=== PATIENT | female | born 1995 | race Caucasian/White ===

== ENCOUNTER → 2018-10-14 16:45 | Outpatient (CLI) | payer BC, SELFPAY ==
[2018-10-19 15:02] LABS: HPV Reflexed? NOT INDICATED
--- OUTSIDE RECORDS SUMMARY | 2018-12-01 02:04 | XMS RPT_ITS | Summary of Care ---
:1995 Author Organization [facility] Address [address] [id number] Care Team Providers Name Role Phone No, Physician Primary Care Provider Unavailable Reason for Visit Reason Comments Follow-up Encounter Details Date Type Department Care Team Description 04/13/2018 Office Visit [facility] Orthopedic Girma Colvin Bursitis/tendonitis, shoulder (Primary Dx); & Sports Medicine MD [place] Shoulder instability, right; Physicians [address] Right shoulder pain, unspecified chronicity [address] [place] [address] [place] [address] [phone] Allergies No Known Allergiesas of this encounter Medications Prescription Sig. Disp. Refills Start Date End Date Status PREVIFEM 0.25-35 mg-mcg per tablet 02/13/2018 Active as of this encounter Social History Tobacco Use Types Packs/Day Years Used Date Never Smoker Smokeless Tobacco: Never Used Alcohol Use Drinks/Week oz/Week Comments No Sex Assigned at Date Recorded Not on file as of this encounter Progress Notes Girma Colvin MD - 04/13/2018 11:55 AM EDT She comes today for followup of her right shoulder physical therapy. She declined a shot the last time but the therapy has helped quite a bit. She is about 25%-30% better and getting better every day. She said she thinks she can finish out her senior year. She does not want any surgery. PHYSICAL EXAMINATION General: Today, she is awake, alert, oriented x3. Musculoskeletal: She has 5/5 strength throughout the right upper extremity, including the rotator cuff. Today she has some tenderness to the anterior acromial hook and bicipital groove, faintly positive anterior apprehension and relocation sign. IMPRESSION 1.Right shoulder anterior inferior instability. 2.Right shoulder internal impingement with rotator cuff tendinitis. 3.Possible SLAP lesion right shoulder. 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 I will have her minimize her repetitions in fall softball when she returns in June. She will get ready for the spring season. If in fact, she needs a shot she will call me. I will see her on an as-needed basis. in this encounter Plan of Treatment Health Maintenance Due Date Last Done Comments TETANUS EVERY 10 YR 1997 HPV VACCINES (1 of 3 - Female 3 Dose Series) 2008 SEQUENTIAL INFLUENZA VACCINE (Season Ended) 2018 as of this encounter Visit Diagnoses Diagnosis Bursitis/tendonitis, shoulder - Primary Unspecified disorders of bursae and tendons in shoulder region Shoulder instability, right Right shoulder pain, unspecified chronicity
--- OUTSIDE RECORDS SUMMARY | 2018-12-01 02:04 | XMS RPT_ITS | Summary of Care ---
:[address] [facility] Address [address] [place] [address] Care Team Providers Name Role Phone No, Physician Primary Care Provider Unavailable Reason for Referral Physical Therapy (Routine) Status Reason Specialty Diagnoses / Referred By Referred To Procedures Contact Contact Authorized Physical Therapy / Diagnoses Bursitis/tendonitis, shoulder Shoulder instability, right [facility], Rehabilitation Gabby Swanson MD [address] [place] [address] Reason for Visit Reason Comments Pain Encounter Details Date Type Department Care Team Description 03/02/[address] [facility] Orthopedic Gabby Colvin Right shoulder pain, unspecified chronicity (Primary Dx); & Sports Medicine MD [place] Bursitis/tendonitis, shoulder; [facility], right [id number] [place] [address] [phone] Allergies No Known Allergiesas of this encounter Medications Prescription Sig. Disp. Refills Start Date End Date Status PREVIFEM 0.25-35 mg-mcg per tablet 02/13/2018 Active as of this encounter Social History Tobacco Use Types Packs/Day Years Used Date Never Smoker Smokeless Tobacco: Never Used Alcohol Use Drinks/Week oz/Week Comments No Sex Assigned at Date Recorded Not on file as of this encounter Last Filed Vital Signs Vital Sign Reading Time Taken Blood Pressure - - Pulse - - Temperature - - Respiratory Rate - - Oxygen Saturation - - Inhaled Oxygen Concentration - - Weight 83.9 kg (185 lb) 03/02/2018 3:12 PM EDT Height 167.6 cm (5' 6) 03/02/2018 3:12 PM EDT Body Mass Index 29.86 03/02/2018 3:12 PM EDT in this encounter Progress Notes Gabby Colvin MD - 03/02/2018 5:51 PM EDT Dictation on: 03/02/2018 5:54 PM by: GABBY COLVIN [[id number]] in this encounter Plan of Treatment Upcoming Encounters Date Type Specialty Care Team Description 04/13/2018 Office Visit Sports Medicine Gabby Colvin MD [address] [place] [address] [phone] Scheduled Referrals Name Priority Associated Diagnoses Order Schedule Ambulatory ref to Therapy Routine Bursitis/tendonitis, 1 Occurrences starting (PT/OT/ST) shoulder 03/02/2018 until Shoulder instability, 03/02/2019 right Health Maintenance Due Date Last Done Comments TETANUS EVERY 10 YR 1997 HPV VACCINES (1 of 3 - Female 3 Dose Series) 2008 SEQUENTIAL INFLUENZA VACCINE (#1) 2017 as of this encounter Results XR Shoulder Right 2+ Views (Standard) (03/02/2018 5:52 PM) Specimen Performing Laboratory [facility] Narrative X-ray of the right shoulder 3 views AP axillary Y scapular film obtained due to pain reveals a normal-appearing right shoulder in this encounter Visit Diagnoses Diagnosis Right shoulder pain, unspecified chronicity - Primary Bursitis/tendonitis, shoulder Unspecified disorders of bursae and tendons in shoulder region Shoulder instability, right
--- OUTSIDE RECORDS SUMMARY | 2018-12-01 02:05 | XMS RPT_ITS ---
:1995 Author Organization [facility] Care Team Providers Name Role Phone GABBY COLVIN Attending Unavailable NO, PHYSICIAN Primary Care Unavailable GABBY COLVIN Attending Unavailable NO, PHYSICIAN Primary Care Unavailable Dr. Gabby Colvin Admitting Unavailable Dr. Gabby Colvin Attending Unavailable Rajani Olivia Attending Unavailable Rajani Olivia Referring Unavailable PROBLEMS PROBLEMS DATE TYPE CONDITION / CODE ATTENDING STATUS SOURCE 10/15/2018 Unknown Z12.4 - Encounter Rajani Olivia Active [place] for screening for [facility] neoplasm of Repository cervix / Z12.4(ICD-10) 04/13/2018 Admitting Bursopathy, VINICIUS, Active [facility] diagnosis unspecified / GABBY [place]ira Repository M71.9(ICD-10) 04/13/2018 Admitting Unspecified VINICIUS, Active [facility] diagnosis disorder of GABBY [place] Repository synovium and tendon, unspecified shoulder / M67.919(ICD-10) 04/13/2018 Admitting Other VINICIUS, Active [facility] diagnosis instability, GABBY [place] Repository right shoulder / M25.311(ICD-10) 03/02/2018 Admitting Pain in right VINICIUS, Active [facility] diagnosis shoulder / GABBY [place]ira Repository M25.511(ICD-10) PROCEDURES PROCEDURES No Procedure Records FoundRESULTS RESULTS PAP I-G W/RFX HRHPV Collected: 10/14/2018 Status: F Source: [facility] 4:45 PM [facility] REPOSITORY Order Comment: CYTOLOGY INFORMATION: - CLINICAL INFORMATION: - DATE LMP/MENOPAUSE: 10/06/18 LMP - COLLECTION VIAL: Thin Prep Vial - FLATCAR WHACKER SOURCE: CERVICAL/ENDOCERVICAL - COLLECTION TECHNIQUE: BRUSH/SPATULA Specimen Comment: [id number] Specimen Comment: Source.............Cervix;Endocervix Specimen Comment: LMP / Prev Treat...[id number] Specimen Comment: No. of containers..01 ThinPrep Vial TYPE CODE TESTS RESULT OUT OF RANGE REFERENCE UNITS LAB L7400.0800 . Normal DIAGN Comment Result Comment: NEGATIVE FOR INTRAEPITHELIAL LESION AND MALIGNANCY. LAB L7400.0900 . Normal ADEQ Comment Result Comment: Satisfactory for evaluation. No endocervical component is identified. LAB L7400.1400 . Normal PERFORM Comment Result Comment: Judith Greenberg, Cancer Registry Manager (ASCP) LAB L7400.2575 . Normal TEST METHOD Comment Result Comment: This liquid based ThinPrep(R) pap test was screened with the use of an image guided system. LAB L7400.2600 . Normal . COMM LAB L7400.2700 . Normal PAPSMR Comment Result Comment: The Pap smear is a screening test designed to aid in the detection of premalignant and malignant conditions of the uterine cervix. It is not a diagnostic procedure and should not be used as the sole means of detecting cervical cancer. Both false-positive and false-negative reports do occur. LAB L7400.2800 . Normal HPV RFLX Comment Result Comment: The HPV DNA reflex criteria were not met with this specimen result therefore, no HPV testing was performed. Performed at: [address] [id number] Barrel Polisher: Brandy Aguilar MD, Phone: [phone] Performed By: #### L7400.0350 #### [facility] (refer to report for specific site) refer to report for address and phone number XR SHOULDER RIGHT 2+ Observed: 03/02/2018 Status: F Source: [place] [email or web address] [facility] (STANDARD) 12:00 AM THREE REPOSITORY X-ray of the right shoulder 3 views AP axillary Y scapular film obtained due to pain reveals a normal-appearing right shoulder Dictated by: GABBY COLVIN on FriMar 02, 2018 5:52:28 PM EDT Transcribed by: GABBY COLVIN on FriMar 02, 2018 5:52:28 PM EDT Finalized by: GABBY COLVIN on FriMar 02, 2018 5:52:28 PM EDT ALLERGIES ALLERGIES DATE TYPE / CODE NAME / CODE REACTION SEVERITY SOURCE Drug NO KNOWN [facility] Three Class/11101 ALLERGIES Repository 1003(SNOMED CT) ENCOUNTERS ENCOUNTERS ADMIT/DISCHARGE ACCOUNT NUMBER ADMITTING ENCOUNTER LOCATION SOURCE CLASS 10/14/2018 [id number] Ambulatory [facility] ding:LABSPEC Repository 04/23/[id number] Vinicius Ambulatory [facility] Repository 04/13/2018/04/13/20 [id number] Ambulatory Building:[address] [address] [facility] Three ER Repository 03/02/2018/03/02/20 [id number] Ambulatory Building:[address] Three ER Repository PAYERS PAYERS ENCOUNTER GUARANTOR PAYER SUBSCRIBER SOURCE 10/14/2018 JESENIA Primary CYN [facility] Insurance:ANTHEMPolic [id number] [facility], Number: [facility] [id number]: . [id number] Repository () Date:8612-98-39AB [id number] [place] [address]: 10/14/2018 Secondary NOT GIVENUNK [place] Insurance:SELF PAY [facility] Number: Effective Repository Date:2018-10-14 04/23/2018 Primary CYN L [facility] Insurance:[employer] [facility] Number: [id number] [facility] [id number] [employer] [place] Repository Date:Plan Name:[place] [address] 04/13/2018 JESENIA Primary CYN [facility]DOB[facility] Insurance:ANTHEMPolic [id number] Three Repository y Number: [facility] [id number] [place], [place] Date:2696-74-37OM [address]Ccl: [phone]: [phone] [id number], [place] [phone] () [address]QL: 03/02/2018 JESENIA BOSSB: [facility] KARYNB: Insurance:ANTHEMPolic [id number] Three Repository y Number: [facility] [id number] [place], [place] Date:6381-00-26GR [address] [address]Ber: [phone]: [phone], [place] [phone] () [phone] () [address]SA:
--- OUTSIDE RECORDS SUMMARY | 2018-12-01 02:05 | XMS RPT_ITS | Summary of Care ---
:1995 Author Organization [facility] Address [address] [address] Care Team Providers Name Role Phone No, Physician Primary Care Provider Unavailable Encounter Details Date Type Department Care Team Description 03/19/2018 Hospital Encounter [facility] Girma Colvin [address] Lety Swanson MD [place], [place] [address] [address] [place] [address] [phone] Allergies No Known Allergiesas of this encounter Medications Prescription Sig. Disp. Refills Start Date End Date Status PREVIFEM 0.25-35 mg-mcg per tablet 02/13/2018 Active as of this encounter Social History Tobacco Use Types Packs/Day Years Used Date Never Smoker Smokeless Tobacco: Never Used Alcohol Use Drinks/Week oz/Week Comments No Sex Assigned at Date Recorded Not on file as of this encounter Plan of Treatment Upcoming Encounters Date Type Specialty Care Team Description 04/13/2018 Office Visit Sports Medicine Girma Colvin MD [address] [place] [address] [phone] Health Maintenance Due Date Last Done Comments TETANUS EVERY 10 YR 1997 HPV VACCINES (1 of 3 - Female 3 Dose Series) 2008 SEQUENTIAL INFLUENZA VACCINE (Season Ended) 2018 as of this encounter
== END ==
PROVIDERS: Referring Provider Obstetrics & Gynecology; Visit Provider Obstetrics & Gynecology
DX: Z12.4 Encounter for screening for malignant neoplasm of cervix (principal)
CPT/HCPCS: 88175; G0145

== ENCOUNTER → 2020-06-05 13:43 | Outpatient (CLI) | payer BC, SELFPAY ==
[2020-06-09 16:03] LABS: HPV Reflexed? NOT INDICATED
== END ==
PROVIDERS: Visit Provider Student in an Organized Health Care Education/Training Program
DX: Z12.4 Encounter for screening for malignant neoplasm of cervix (principal)
CPT/HCPCS: 88175; G0145